=== PATIENT | male | born 1960 | race Caucasian/White ===

== ENCOUNTER 2017-09-17 14:04 | Outpatient (RCR) | payer MEDICAID, SELFPAY ==
--- NOTE | 2017-09-17 13:49 | PTDS_ITS ---
Date: September 17, 2017 Referring: Gonzales Arteaga D.O. Diagnosis: S/p bilateral TKA Subjective: History of Present Illness: Masoud reports he has been holding up well with his in clinic strengthening program. Wishes to continue on a Wellness basis. Still has some difficulty with kneeling, as well as some flaco patella discomfort when transitioning from end range flexion to extension. Objective: ROM: AROM 115 flexion left; 120 right. AAROM 120 flexion left; 125 right. Extension 0 bilaterally. Strength: 4+/5 quadriceps, hamstrings, hip flexion and hip abduction. No charge for today's session. Assessment: The patient has met all short and mcc goals established at time of I.E. I do feel he would benefit from continued strengthening via a Wellness Program. Plan: Will discharge Masoud at this time, and have him complete his MSP for another two weeks and then transition to a Wellness Program. Thank you for this referral!
== END 2017-10-16 23:59 | disposition home or self-care (01) ==
LOC: PT 14:04
PROVIDERS: PCP Emergency Medicine; Referring Provider Orthopaedic Surgery; Visit Provider Orthopaedic Surgery
DX: Z47.1 Aftercare following joint replacement surgery (principal); Z96.653 Presence of artificial knee joint, bilateral

== ENCOUNTER → 2017-10-02 16:13 | Outpatient (CLI) | payer MEDICAID, SELFPAY ==
[2017-10-02 18:01] LABS: C-Reactive Protein 0.63 mg/dL (0.0-0.3)
[2017-10-05 13:47] LABS: HSV Type 1 Ab, IgG Positive; HSV Type 2 Ab, IgG Negative
[2017-10-06 14:07] LABS: SS-A Antibody 1.7 Units (<20); SS-B (La) Ab, IgG 2.2 Units (<20)
== END ==
PROVIDERS: PCP Emergency Medicine; Visit Provider Otolaryngology Otolaryngology/Facial Plastic Surgery
DX: K13.0 Diseases of lips (principal); R68.2 Dry mouth, unspecified
CPT/HCPCS: 36415; 86140; 86235; 86695; 86696

== ENCOUNTER 2020-05-07 03:49 | Outpatient (CLI) | payer MEDICAID, SELFPAY ==
[2020-05-07 13:11] LABS: Abs Immature Grans 0.02 10^3/uL (0.0-0.06); Absolute Basophil Count 0.03 10^3/uL (0.0-0.2); Absolute Eosinophil Count 0.09 10^3/uL (0.0-0.7); Absolute Lymphocyte Count 1.31 10^3/uL (1.2-3.4); Absolute Monocyte Count 0.58 10^3/uL (0.1-0.8); Absolute Neutrophil Count 3.04 10^3/uL (1.2-6.7); Basophils % 0.6; Eosinophils % 1.8; HCT 43.3 % (40.0-50.0); HGB 14.8 g/dL (13.5-17.5); Immature Grans % 0.4; Lymphocytes % 25.8; MCH 29.7 pg (27.0-33.0); MCHC 34.2 % (32.0-36.0); MCV 86.8 fL (80-95); MPV 12.1 fL (8.0-11.0); Monocytes % 11.4; Nucleated RBC 0 %; Platelet Count 121 10^3/uL (130-400); RBC 4.99 10^6/uL (4.36-5.78); RDW 13.1 % (11.8-14.1); RDW-SD 41.3 fL; WBC 5.07 10^3/uL (4.4-10.8)
[2020-05-07 14:31] LABS: ALT 48 U/L (16-63); AST 25 U/L (15-37); Albumin 3.9 g/dL (3.4-5.0); Alkaline Phosphatase 130 U/L (46-116); Anion Gap 9.9 mmol/L (3-11); BUN 14 mg/dL (7-18); Bilirubin, Total 0.5 mg/dL (0.2-1.0); CO2 27.1 mmol/L (21.0-32.0); Calcium 9.3 mg/dL (8.5-10.1); Calculated LDL 120 mg/dL (<100); Chloride 106 mmol/L (98-107); Cholesterol 234 mg/dL (<200); Glucose 103 mg/dL (74-106); HDL Cholesterol 40 mg/dL (40-60); Potassium 4.1 mmol/L (3.5-5.1); Sodium 143 mmol/L (136-145); Triglyceride 371 mg/dL (<150)
[2020-05-07 14:48] LABS: Total Protein 7.4 g/dL (6.4-8.2)
== END 2020-05-07 03:50 | disposition home or self-care (01) ==
LOC: LBO 03:49
PROVIDERS: PCP Emergency Medicine; Visit Provider Family Medicine
DX: E78.5 Hyperlipidemia, unspecified (principal); K51.90 Ulcerative colitis, unspecified, without complications
CPT/HCPCS: 36415; 80053; 80061; 85025

== ENCOUNTER 2021-05-30 02:13 | Outpatient (CLI) | payer MEDICAID, SELFPAY ==
[2021-05-30 10:06] LABS: Calculated LDL 97 mg/dL (<100); Cholesterol 188 mg/dL (<200); HDL Cholesterol 40 mg/dL (40-60); Triglyceride 258 mg/dL (<150)
== END 2021-05-30 02:14 | disposition home or self-care (01) ==
LOC: LBO 02:13
PROVIDERS: PCP Nurse Practitioner Family; Visit Provider Nurse Practitioner Family
DX: E78.2 Mixed hyperlipidemia (principal)
CPT/HCPCS: 36415; 80061

== ENCOUNTER 2021-08-26 03:30 | Outpatient (CLI) | payer MEDICAID, SELFPAY ==
[2021-08-26 12:56] LABS: CREATININE 0.9 mg/dL (0.70-1.30)
== END 2021-08-26 03:31 | disposition home or self-care (01) ==
LOC: LOS 03:30
PROVIDERS: PCP Nurse Practitioner Family; Visit Provider Nurse Practitioner Family
DX: I10 Essential (primary) hypertension (principal)
CPT/HCPCS: 36415; 82565

== ENCOUNTER 2022-01-29 03:16 | Outpatient (CLI) | payer MEDICAID, SELFPAY ==
[2022-01-29 12:30] LABS: Potassium 3.8 mmol/L (3.5-5.1)
== END 2022-01-29 03:17 | disposition home or self-care (01) ==
LOC: LOS 03:17
PROVIDERS: PCP Nurse Practitioner Family; Visit Provider Nurse Practitioner Family
DX: I10 Essential (primary) hypertension (principal)
CPT/HCPCS: 36415; 84132

== ENCOUNTER → 2023-03-06 00:18 | Outpatient (CLI) | payer MEDICAID, SELFPAY ==
--- NOTE | 2023-03-06 07:42 | DI.MRI_ITS ---
Exam(s) MR UPPER JOINT LT WO EXAM: MR UPPER JOINT LT WO CLINICAL HISTORY: Lt shoulder pain,M25.511,? supraspinatus tear TECHNIQUE: Multiplanar multisequence MRI of the shoulder was performed. COMPARISON: CR RIGHT SHOULDER COMPLETE from 08/18/2012 FINDINGS: MARROW:There is no evidence of fracture, Hill-Sachs deformity, nor ominous osseous lesions. GLENOHUMERAL JOINT: There has been progression of degenerative change in the glenohumeral joint when compared to plain film images of August 2012. There are now chondral defects over the lower half of the osseous glenoid. Also cartilage thinning over the lower half of the humeral head. There are no deg enerative subarticular cysts. There is a tiny osteophyte on the inferior articular surface of the hu meral head. There is no glenohumeral joint effusion nor obvious loose intra-articular bodies. ROTATOR CUFF MECHANISM: AC JOINT/ACROMIUM: There are mild degenerative changes in the AC joint.. There is no evidence of os acromiale. Supraspinatus: There is mild tendinitis signal evident in the supraspinatus tendon in without evidenc e of partial nor full-thickness tear and there is no fluid in the overlying subacromial bursa. Howev er, there is also signal abnormality more proximally in the supraspinatus medial to the osseous gleno id. This is predominately on the superior surface of the muscle just proximal to the musculotendinou s junction. Infraspinatus: Intact. No evidence of tear nor muscle atrophy. Teres Minor: Intact. No evidence of tear nor muscle atrophy. Subscapularis/anterior cuff: Intact. No abnormal signal at the level of the multipennate insertional fibers. No significant tear nor atrophy. BICEPS TENDON: Exhibits normal position within the intertubercular groove. There is some thinning of the biceps tendon over a distance of 1.8 cm within the upper intertubercular groove. However, there is no full-thickness tear nor retraction. LABRUM: There is an somewhat attenuated superior labrum posterior to the biceps insertion. There is also tearing of the posterior labrum as well as the anterior superior labrum.. The inferior labrum a ppears intact. There is no obvious tear of the inferior glenohumeral ligament. QUADRILATERAL SPACE: No evidence of mass in the region of the axillary nerve and dorsal circumflex hu meral vessels. Visualized triceps muscle at this level appears unremarkable. IMPRESSION: 1. There is mild tendinitis of the supraspinatus but there is more impressive signal abnormality more proximally in the muscle just proximal to the musculotendinous junction, this medial to the glenoid fossa consistent with mild intramuscular tearing at this level. 2. There are moderate degenerative changes in the glenohumeral joint with multilevel articular cartil age surface loss and there is a small osteophyte on the inferior articular surface of the humeral hea d. There is also some diffuse labral tearing as described above. The inferior glenohumeral ligament is intact. 3. No evidence of glenohumeral joint effusion or loose intra-articular bodies. There are no degenera tive subarticular cysts. DATA REPOSITORY:
== END ==
PROVIDERS: PCP Nurse Practitioner Family; Visit Provider Nurse Practitioner Family
DX: M75.112 Incomplete rotator cuff tear or rupture of left shoulder, not specified as traumatic
CPT/HCPCS: 73221

== ENCOUNTER 2023-04-03 02:55 | Outpatient (CLI) | payer MEDICAID, SELFPAY ==
[2023-04-03 12:52] LABS: CREATININE 1.1 mg/dL (0.70-1.30); Estimated GFR 76.37 (mL/min/1.73m2)
[2023-04-03 15:57] LABS: Calculated LDL 86 mg/dL (<100); Cholesterol 170 mg/dL (<200); HDL Cholesterol 47 mg/dL (40-60); Triglyceride 185 mg/dL (<150)
== END 2023-04-03 02:56 | disposition home or self-care (01) ==
LOC: LOS 02:55
PROVIDERS: PCP Nurse Practitioner Family; Visit Provider Nurse Practitioner Family
DX: I10 Essential (primary) hypertension (principal); E78.5 Hyperlipidemia, unspecified
CPT/HCPCS: 36415; 80061; 82565; 84132

== ENCOUNTER → 2023-07-16 03:00 | Outpatient (CLI) | payer MEDICAID, SELFPAY ==
--- NOTE | 2023-07-16 07:45 | DI.MRI_ITS ---
Exam(s) MR UPPER JOINT LT WO EXAM: MR UPPER JOINT LT WO CLINICAL HISTORY: L SHOULDER PAIN, LT ROT CUFF TEAR, TENDINITIS, IMPINGEMENT SYNDROME, M75.10. TECHNIQUE: Multiplanar multisequence MRI was performed. COMPARISON: CR XR SHOULDER LEFT from 12/26/2022 MR MR UPPER JOINT LT WO from 03/06/2023 FINDINGS: BONES: There is no fracture or contusion pattern. JOINTS: Mild degenerative changes are seen at the acromioclavicular joint. There are degenerative ch anges seen at the glenohumeral joint with cartilage loss particularly seen in the inferior aspect of the glenoid. Spurring is seen in the humeral head. There is a small to moderate size joint effusion . There is a 4 mm loose body in the joint effusion anteriorly. There is fluid seen along the medial aspect of the proximal humeral metaphysis. There also appears to be some disruption of the joint ca psule inferiorly and posteriorly. TENDONS: Supraspinatus: There is no evidence of a supraspinatus tendon tear peer the supraspinatus muscle show s normal signal. The previously seen hyperintense signal has resolved. Infraspinatus: Unremarkable. Subscapularis: Unremarkable. Teres Minor: Unremarkable. Biceps and Tyler: Unremarkable. MUSCLES: Unremarkable. GLENOID LABRUM: There is irregularity of the superior labrum likely reflecting degeneration. There a lso degenerative changes seen in the posterior labrum. SOFT TISSUES: Unremarkable. LIGAMENTS: Unremarkable. OTHER: Subacromial and subdeltoid bursae are unremarkable. IMPRESSION: 1. There is fluid now seen medial to the proximal humeral metaphysis and there appears to be disrupti on of the inferior capsule suspicious for an inferior glenohumeral ligament tear. 2. Resolution of the abnormal signal seen in the supraspinatus muscle. No evidence of a rotator cuff tear. 3. Irregularity of the labrum which may reflect degeneration and/or tear. 4. Glenohumeral joint effusion and question of a loose body anteriorly. 5. Degenerative changes of the glenohumeral joint. DATA REPOSITORY:
== END ==
PROVIDERS: PCP Nurse Practitioner Family; Visit Provider Student in an Organized Health Care Education/Training Program
DX: M75.22 Bicipital tendinitis, left shoulder
CPT/HCPCS: 73221

== ENCOUNTER 2024-04-12 08:55 | Outpatient (CLI) | payer MEDICAID, SELFPAY ==
[2024-04-12 08:59] LABS: Anion Gap 7.3 mmol/L (3-11); BUN 13 mg/dL (7-18); CO2 29.7 mmol/L (21.0-32.0); Calcium 9.9 mg/dL (8.5-10.1); Chloride 108 mmol/L (98-107); Glucose 99 mg/dL (74-106); Sodium 145 mmol/L (136-145)
[2024-04-12 19:02] LABS: PSA, Screening 1.2 ng/mL (<=4.5)
== END 2024-04-12 08:56 | disposition home or self-care (01) ==
LOC: LBO 08:56
PROVIDERS: PCP Nurse Practitioner Family; Visit Provider Nurse Practitioner Family
DX: Z12.5 Encounter for screening for malignant neoplasm of prostate (principal); Z13.1 Encounter for screening for diabetes mellitus; Z23 Encounter for immunization; I10 Essential (primary) hypertension; E78.2 Mixed hyperlipidemia; K21.9 Gastro-esophageal reflux disease without esophagitis; S06.9X9A Unspecified intracranial injury with loss of consciousness of unspecified duration, initial encounter; Z96.612 Presence of left artificial shoulder joint
CPT/HCPCS: 36415; 80048; 84153

== ENCOUNTER 2024-10-25 17:00 | Emergency (ER) | payer MEDICAID, SELFPAY ==
[2024-10-25 17:06] VITALS: BP 147/95; PULSE 74; RESP 20; TEMP 36.8; O2SAT 94
--- NOTE | 2024-10-25 17:30 | DI.RAD_ITS ---
Exam(s) XR CHEST 2V PA LATERAL EXAM: XR CHEST 2V PA LATERAL CLINICAL HISTORY: hemoptysis TECHNIQUE: 2D digital imaging was performed. Two views. COMPARISON: No exams were available for comparison FINDINGS: HEART: Normal size. Aorta: Not dilated. PULMONARY VASCULATURE: Normal. MEDIASTINUM: Unremarkable. LUNGS: Clear. PLEURAL SPACE: No pleural effusion or pneumothorax. BONE:Left shoulder prosthesis. SOFT TISSUES: Unremarkable. IMPRESSION: No acute abnormality. The preliminary [facility] report was reviewed. DATA REPOSITORY: RADIATION DOSE DELIVERED:
[2024-10-25 18:10] LABS: Abs Immature Grans 0.02 10^3/uL (0.0-0.06); HCT 39.4 % (40.0-50.0); HGB 13.4 g/dL (13.5-17.5); Immature Grans % 0.5 %; MCH 30.5 pg (27.0-33.0); MCHC 34.0 % (32.0-36.0); MCV 90 fL (80-95); MPV 11.9 fL (8.0-11.0); Platelet Count 107 10^3/uL (130-400); RBC 4.40 10^6/uL (4.36-5.78); RDW 13.2 % (11.8-14.1); RDW-SD 43.2 fL; WBC 4.31 10^3/uL (4.4-10.8)
[2024-10-25 18:24] LABS: ALT 27 U/L (16-63); AST 17 U/L (15-37); Albumin 4.1 g/dL (3.4-5.0); Alkaline Phosphatase 108 U/L (46-116); Anion Gap 11.5 mmol/L (3-11); BUN 15 mg/dL (7-18); Bilirubin, Total 0.5 mg/dL (0.2-1.0); CO2 24.5 mmol/L (21.0-32.0); Calcium 9.6 mg/dL (8.5-10.1); Chloride 105 mmol/L (98-107); Estimated GFR 100.06 (mL/min/1.73m2); Glucose 118 mg/dL (74-106); Potassium 3.9 mmol/L (3.5-5.1); Sodium 141 mmol/L (136-145); Total Protein 7.8 g/dL (6.4-8.2)
[2024-10-25 18:54] LABS: D-Dimer 756 ng/mlFEU (<500)
--- NOTE | 2024-10-25 19:15 | DI.CT_ITS ---
Exam(s) CT CHEST PE CTA EXAM: CT CHEST PE CTA CLINICAL HISTORY: elevated dimer, wtih hemoptysis. TECHNIQUE: Imaging Protocol: Axial CT angiography was performed with multi- slice acquisition and multi-planar reconstructions as well as axial, coronal and sagittal MIP reconstructions. Computer aided detection (CAD) was utilized. CONTRAST MATERIAL: Intravenous: Omnipaque 350 Contrast volume:83 ml COMPARISON: CT CHEST ABD PELVIS WITH CONTRAST from 10/04/2014 CR,XR XR CHEST 2V PA LATERAL from 10/25/2024 FINDINGS: Exam is mildly limited by motion artifact. Pulmonary Arteries: No evidence of filling defect to suggest pulmonary emboli. Mediastinum and Chani: Small mediastinal and hilar lymph nodes.. Pulmonary parenchyma: Expiratory changes. No consolidation or dominant measurable mass. Pleura: No effusion or pneumothorax. Heart: The heart is not dilated. coronary artery calcifications are seen. Aorta: Thoracic aorta non-dilated. No dissection. Upper abdomen: No acute findings. Bones: Unremarkable for age. Tubes, Catheters, and Lines: None Soft tissues: Unremarkable. IMPRESSION: No evidence of pulmonary embolism. The lungs are not well evaluated due to expiratory changes. There are mildly enlarged hilar and mediastinal lymph nodes, nonspecific, which may be secondary to infectious versus inflammatory or neoplastic causes. The preliminary [facility] report was reviewed. RADIATION DOSE DELIVERED: 112.3mGy.cm Total DLP DATA REPOSITORY: All CT scans at this facility are submitted to the National Radiology Data Registry (NRDR) Dose Index Registry (DIR) with the [employer] (A[employer]). RADIATION OPTIMIZATION: All CT scans at this facility use at least one of these dose optimization techniques: automated exposure control; mA and/or kV adjustment per patient size (includes targeted exams where dose is matched to clinical indication); or iterative reconstruction.
--- NOTE | 2024-10-25 20:00 | DI.[facility]_ITS ---
PROCEDURE INFORMATION: Exam: XR Chest Exam date and time: 10/25/2024 7:15 PM Age: 64 years old Clinical indication: Other: Hemoptysis; Prior surgery; Surgery date: 6+ months; Surgery type: L shoulder surg x jan 2024 TECHNIQUE: Imaging protocol: Radiologic exam of the chest. Views: 2 views. COMPARISON: MR UPPER JOINT LT WO 07/16/2023 12:16 PM FINDINGS: Lungs: No pulmonary consolidation is seen. Pleural spaces: No pleural effusion or pneumothorax is demonstrated. Heart/Mediastinum: The heart appears normal in size. Bones/joints: A left shoulder arthroplasty prosthesis is partially visualized. Otherwise, the visualized bony structures appear grossly intact. IMPRESSION: No active disease is seen in the chest. Dictated and Authenticated by: Roni Wood MD. Orderin Maurizio Espinosa MD
[2024-10-25] MEDS: Omnipaque 350 MG/ML 100 ML BTL IJ (20:09)
[2024-10-25] MEDS: Normal Saline Flush 10 ML SYR IVP (20:10)
[2024-10-25] MEDS: Normal Saline - Diluent 50 ML VIAL IJ (20:10)
--- NOTE | 2024-10-25 20:35 | DI.[facility]_ITS ---
PROCEDURE INFORMATION: Exam: CTA Chest With Contrast Exam date and time: 10/25/2024 8:10 PM Age: 64 years old Clinical indication: Abnormal findings; Abnormal diagnostic tests; Elevated d-dimer; Elevated d dimer. Wtih hemoptysis TECHNIQUE: Imaging protocol: Computed tomographic angiography of the chest with contrast. Exam focused on the arteries. 3D rendering (Not supervised by radiologist): MIP and/or 3D reconstructed images were created by the technologist. Radiation optimization: All CT scans at this facility use at least one of these dose optimization techniques: automated exposure control; mA and/or kV adjustment per patient size (includes targeted exams where dose is matched to clinical indication); or iterative reconstruction. Contrast material: OMNIPAQUE 350; Contrast volume: 83 ml; Contrast route: INTRAVENOUS (IV); COMPARISON: CR XR CHEST 2V PA LATERAL 10/25/2024 7:15 PM FINDINGS: Pulmonary arteries: No pulmonary embolism is identified. The small and distal pulmonary arteries are partially obscured by artifact from breathing motion and not well evaluated for diagnosis or exclusion of small or distal pulmonary emboli. Aorta: No thoracic aortic aneurysm. Coronary artery calcification in the left anterior descending artery. Thyroid: Thyroid gland largely obscured by artifact and poorly evaluated but not grossly enlarged. Lungs: No pulmonary consolidation. Pleural spaces: No pleural effusion or pneumothorax. Heart: Normal-sized heart. Lymph nodes: Enlarged bilateral hilar lymph nodes with a 1.9 cm x 1.5 cm lymph node on the right on image 65 of series 10 and a 1.3 cm x 1.2 cm lymph node on the left on image 59 of series 10. Bones/joints: Prior left shoulder arthroplasty with associated streak artifact created by the metallic prosthesis. Lower ribs partially excluded from view and incompletely evaluated. Otherwise, no acute fracture seen among the bones of the chest. Soft tissues: No gross soft tissue mass or fluid collection seen in the chest wall. No gross soft tissue mass or fluid collection seen in the chest wall. IMPRESSION: 1. No pulmonary consolidation or pleural effusion. 2. Limited assessment for pulmonary emboli, as above. 3. Mildly enlarged bilateral hilar lymph nodes, nonspecific. Reactive, inflammatory, or neoplastic nodes could have this appearance. Clinical correlation and follow-up are recommended. Dictated and Authenticated by: Roni Wood MD. Orderin Maurizio Espinosa MD
[2024-10-25] MEDS: Doxycycline Hyclate 100 MG, 2 CAPS/BTL PO (21:34)
[2024-10-25] MEDS: predniSONE 20 MG TAB 40 MG PO (21:34)
[2024-10-25] MEDS: Loratidine 10 MG TAB PO (21:35)
[2024-10-25 21:39] VITALS: BP 148/97; PULSE 64; RESP 22; TEMP 36.4; O2SAT 96
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
== END 2024-10-25 21:41 | disposition home or self-care (01) ==
PROVIDERS: Emergency Provider Physician Assistant; PCP Nurse Practitioner Family
DX: R04.2 Hemoptysis (principal); E04.1 Nontoxic single thyroid nodule; S60.561A Insect bite (nonvenomous) of right hand, initial encounter; X58.XXXA Exposure to other specified factors, initial encounter
CPT/HCPCS: 99285; 99284; 36415; 71275; 80053; 71046; 85025; 85379; J3490; J7512

== ENCOUNTER 2025-01-11 07:13 | Observation (INO) | payer MEDICAID, SELFPAY ==
[2025-01-11] VITALS (43 sets, daily range): BP systolic 113–149; BP diastolic 76–115; PULSE 69–119; RESP 12–27; TEMP 36–38.3; O2SAT 90–100
--- NOTE | 2025-01-11 07:15 | DI.CT_ITS ---
Exam(s) CT ABDOMEN PELVIS W EXAM: CT ABDOMEN PELVIS W CLINICAL HISTORY: periumbilical pain, N/V/D TECHNIQUE: Imaging Protocol: Axial computed tomography images with coronal and sagittal reformatted images were created and reviewed. CONTRAST MATERIAL: Intravenous: Omnipaque 350 Contrast volume:75 mL Oral: No COMPARISON: CT CHEST ABD PELVIS WITH CONTRAST from 10/04/[address] CHEST PE CTA from 10/25/2024 FINDINGS: ABDOMEN: Lung Bases: No acute abnormality. Liver: The dome of the liver was not included. No measurable mass. Portal, Superior Mesenteric, and Splenic Veins: Unremarkable. Gallbladder and Biliary Tract: There is some hyperdense debris seen in the dependent portion of the gallbladder suspicious for cholelithiasis. There is no biliary ductal dilatation. There is no CT evidence to suggest acute cholecystitis. Pancreas: Normal density, no abnormal calcifications or inflammatory process. Spleen: Normal. Adrenals: No masses seen. Kidneys: Normal size, contour and axis. No radiodense stones or obstructive uropathy. No masses seen. Abdominal Aorta: Abdominal portion non-dilated. Mild atherosclerotic calcification is present. Bowel: There are diverticula seen in the colon. There is [id number] wall thickening throughout the entire colon with pericolonic inflammation particularly seen in the right upper quadrant. There is also mild wall thickening seen in the terminal ileum. There is no evidence of obstruction. There is no evidence of an appendicitis. There is no evidence of pneumatosis. Peritoneal Cavity: No ascites, collection or mesenteric inflammatory response. No free air. Lymph Nodes: Within normal limits. Bones: Within normal limits for the patient's age. Soft Tissues: There is a small fat containing left inguinal hernia. PELVIS: Bladder: Symmetric distention, no gross wall thickening. Reproductive Organs: Unremarkable as visualized. Lymph Nodes: Within normal limits. Bones: Within normal limits for the patient's age. IMPRESSION: 1. Diffuse mild to moderate bowel wall thickening involving the entire colon in the terminal ileum. Primary diagnostic concern is for inflammatory bowel process such as ulcerative colitis. Enterocolitis should also be considered. 2. Diverticulosis of the sigmoid colon. RADIATION DOSE DELIVERED: 511.2mGy.cm Total DLP DATA REPOSITORY: All CT scans at this facility are submitted to the National Radiology Data Registry (NRDR) Dose Index Registry (DIR) with the [employer] (ACR). RADIATION OPTIMIZATION: All CT scans at this facility use at least one of these dose optimization techniques: automated exposure control; mA and/or kV adjustment per patient size (includes targeted exams where dose is matched to clinical indication); or iterative reconstruction.
[2025-01-11] MEDS: Ondansetron 4 MG/2 ML VIAL IVP ×2 (07:38→12:51)
[2025-01-11] MEDS: ACETAMINOPHEN 1,000 MG/100 ML BAG 400 MG IVPB (07:38)
[2025-01-11] MEDS: Lactated Ringers 500 ML 1000 ML IV (07:39)
[2025-01-11 07:40] LABS: Abs Immature Grans 0.05 10^3/uL (0.0-0.06); HCT 47.8 % (40.0-50.0); HGB 16.7 g/dL (13.5-17.5); Immature Grans % 0.6 %; MCH 30.5 pg (27.0-33.0); MCHC 34.9 % (32.0-36.0); MCV 87 fL (80-95); MPV 12.5 fL (8.0-11.0); Platelet Count 107 10^3/uL (130-400); RBC 5.48 10^6/uL (4.36-5.78); RDW 13.2 % (11.8-14.1); RDW-SD 42.6 fL; WBC 7.87 10^3/uL (4.4-10.8)
[2025-01-11 07:56] LABS: RBC Morphology Normal
[2025-01-11 07:58] LABS: Lipase 27 U/L (<53); Magnesium 2.1 mg/dL (1.6-2.6)
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
[2025-01-11 08:00] LABS: ALT 30 U/L (10-49); AST 27 U/L (<34); Albumin 4.8 g/dL (3.2-5.0); Alkaline Phosphatase 91 U/L (46-116); Anion Gap 13.9 mmol/L (3-11); BUN 30 mg/dL (9-23); Bilirubin, Total 0.80 mg/dL (0.2-1.2); CO2 20.1 mmol/L (20.0-31.0); Calcium 9.5 mg/dL (8.3-10.6); Chloride 103 mmol/L (98-107); Glucose 127 mg/dL (74-106); Potassium 3.8 mmol/L (3.5-5.1); Sodium 137 mmol/L (136-145); Total Protein 8.5 g/dL (5.7-8.2)
--- NOTE | 2025-01-11 08:00 | RT.EKG_ITS ---
APPROVED REPORT Exam: Resting ECG Reason for Exam: Elevated trop, CP Patient Location: E HR:98 bpm ECG Measurements Heart Rate 98 AXIS KS 144 P 38 QRSd 180 QRS -39 QT 412 T 121 QTc 527 Conclusion Sinus rhythm, rate 98 LBBB and prolonged QTc at 527ms Sgarbosa negative, no priors available for comparison
[2025-01-11] MEDS: Omnipaque 350 MG/ML 100 ML BTL IJ (08:08)
[2025-01-11] MEDS: Normal Saline - Diluent 50 ML VIAL IJ (08:09)
[2025-01-11 08:12] LABS: Troponin I 98 ng/L (<54)
[2025-01-11 09:13] LABS: Troponin I 90 ng/L (<54)
[2025-01-11 09:56] LABS: ESR 49 mm/hr (0-20)
[2025-01-11 10:05] LABS: EPI 027-NAP1-B1 PRESUMPTIVE NEGATIVE
[2025-01-11 10:08] LABS: C-Reactive Protein 14.37 mg/dL (<=0.50)
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
[2025-01-11] MEDS: methylPREDNISolone SUCC 40 MG VIAL 20 MG IVP ×2 (10:16→18:13)
[2025-01-11 10:49] LABS: Glucose Negative (Negative)
[2025-01-11 10:56] LABS: C & S Indicated? No; RBC 0-2 HPF (0-2); WBC Negative HPF (0-5)
--- NOTE | 2025-01-11 11:07 | W.PC.ACHO ---
Registration Status: REG ER Primary Language: Preferred Language: Setswana ED Information & Data Chief Complaint Nausea/Vomit/Diar 01/11/25 07:58 Triage Note N/V/D, abdominal pain, 01/11/25 07:18 chillc, fatigued, weakness since Thursday Medical / Surgical History (Last Reviewed 12/05/24 @ 12:33 by Leo Luong MD) Fall with injury Impingement syndrome of left shoulder Tendinitis of long head of biceps brachii of left shoulder Left rotator cuff tear Medial epicondylitis, left elbow Lateral epicondylitis, left elbow (Last Reviewed 12/05/24 @ 12:33 by Leo Luong MD) History of left shoulder replacement Status post reverse total arthroplasty of left shoulder (02/03/24) History of arthroscopy of knee Status post total bilateral knee replacement (04/29/17) Colonoscopy - MAC Arthroplasty of knee Most Recent Vital Signs Temperature 36.9 C 01/11/25 09:28 Temperature Source Oral 01/11/25 09:28 Pulse 93 H 01/11/25 10:46 Pulse 97 H 01/11/25 10:46 Respiratory Rate 14 01/11/25 10:46 Blood Pressure 126/87 01/11/25 10:46 Blood Pressure Mean 99 01/11/25 10:46 Blood Pressure Position Sitting 01/11/25 07:57 Pulse Oximetry 93 01/11/25 10:46 Oxygen Delivery Method Room Air 01/11/25 07:57 Oxygen Flow Rate 0 01/11/25 07:57 Pain Level 6 01/11/25 07:57 Allergies erythromycin base Allergy (Severe, Verified 01/11/25 07:25) HIVES vegetable oil Allergy (Intermediate, Verified 01/11/25 07:25) Skin Rash Breakout in face palm oil Adverse Reaction (Intermediate, Verified 01/11/25 07:25) Skin Rash Rash around eyes, lips, and face tomato Allergy (Uncoded 01/11/25 07:25) hives Precautions Isolation Standard precaution 01/11/25 07:24 Active Medications Generic Name Dose Route Start Last Admin Trade Name Freq PRN Reason Stop Dose Admin Iohexol 100 ml 01/11/25 08:15 01/11/25 08:08 Omnipaque 350 Mg/Ml 100 Ml Btl IJ 02/10/25 23:59 75 ml DIRECTED SILVANA Administration Sodium Chloride 0 ml 01/11/25 08:30 01/11/25 08:30 Normal Saline Flush 10 Ml Syr IVP Not Given BID SILVANA Sodium Chloride 50 ml 01/11/25 08:15 01/11/25 08:09 Normal Saline - Diluent 50 Ml Vial IJ 50 ml DIRECTED SILVANA Administration IV IV Catheter Type [Right Saline Lock Forearm] IV Catheter Gauge [Right 20 Forearm] Diagnostics 01/11/25 01/11/25 01/11/25 Range/Units 10:41 10:10 09:09 WBC (4.4-10.8) 10^3/uL RBC (4.36-5.78) 10^6/uL Hgb (13.5-17.5) g/dL Hct (40.0-50.0) % MCV (80-95) fL MCH (27.0-33.0) pg MCHC (32.0-36.0) % RDW (11.8-14.1) % Plt Count (130-400) 10^3/uL MPV (8.0-11.0) fL Immature Gran % % Neutrophils % % Lymphocytes % % Monocytes % % Eosinophils % % Basophils % % Nucleated RBC % (0.0-0.3) % Absolute Neutrophils (1.2-6.7) 10^3/uL Absolute Lymphocytes (1.2-3.4) 10^3/uL Absolute Monocytes (0.1-0.8) 10^3/uL Absolute Eosinophils (0.0-0.7) 10^3/uL Absolute Basophils (0.0-0.2) 10^3/uL RBC Morphology ESR (0-20) mm/hr VBG Lactate (<or=2.0) mmol/L Sodium (136-145) mmol/L Potassium (3.5-5.1) mmol/L Chloride (98-107) mmol/L Carbon Dioxide (20.0-31.0) mmol/L Anion Gap (3-11) mmol/L BUN (9-23) mg/dL Creatinine (0.73-1.18) mg/dL Est GFR (CKD-EPI 2020) (mL/min/1.73m2) Glucose (74-106) mg/dL Calcium (8.3-10.6) mg/dL Magnesium (1.6-2.6) mg/dL Total Bilirubin (0.2-1.2) mg/dL AST (<34) U/L ALT (10-49) U/L Alkaline Phosphatase (46-116) U/L Troponin I 73 H* (<54) ng/L C-Reactive Protein (<=0.50) mg/dL Total Protein (5.7-8.2) g/dL Albumin (3.2-5.0) g/dL Lipase (<53) U/L Urine Color Yellow (Yellow) Urine Clarity Clear (Clear) Urine pH 5.5 (5-8) Ur Specific [place] <= 1.005 (1.005-1.025) Urine Protein >=300 H (Neg-Trace) mg/dL Urine Ketones 15 H (Negative) mg/dL Urine Blood Small H (Negative) Urine Nitrite Negative (Negative) Urine Bilirubin Small H (Negative) Urine Urobilinogen 0.2 (Up to 0.2) mg/dL Ur Leukocyte Esterase Negative (Negative) Urine RBC 0-2 (0-2) HPF Urine WBC Negative (0-5) HPF Ur Epithelial Cells Few (Negative) HPF Urine Crystals Negative (Negative) HPF Urine Bacteria Negative (Negative) HPF Urine Casts 3-5 Hyaline (Negative) LPF Urine Mucus Trace (Negative) Ur Culture Indicated? No Urine Glucose Negative (Negative) mg/dL Stl C.difficile Tox PCR Negative (Negative) 01/11/25 01/11/25 Range/Units 08:33 07:32 WBC 7.87 (4.4-10.8) 10^3/uL RBC 5.48 (4.36-5.78) 10^6/uL Hgb 16.7 (13.5-17.5) g/dL Hct 47.8 (40.0-50.0) % MCV 87 (80-95) fL MCH 30.5 (27.0-33.0) pg MCHC 34.9 (32.0-36.0) % RDW 13.2 (11.8-14.1) % Plt Count 107 L (130-400) 10^3/uL MPV 12.5 H (8.0-11.0) fL Immature Gran % 0.6 % Neutrophils % 58.1 % Lymphocytes % 8.0 % Monocytes % 30.5 % Eosinophils % 2.2 % Basophils % 0.6 % Nucleated RBC % 0.0 (0.0-0.3) % Absolute Neutrophils 4.57 (1.2-6.7) 10^3/uL Absolute Lymphocytes 0.63 L (1.2-3.4) 10^3/uL Absolute Monocytes 2.40 H (0.1-0.8) 10^3/uL Absolute Eosinophils 0.17 (0.0-0.7) 10^3/uL Absolute Basophils 0.05 (0.0-0.2) 10^3/uL RBC Morphology Normal ESR 49 H (0-20) mm/hr VBG Lactate 1.9 (<or=2.0) mmol/L Sodium 137 (136-145) mmol/L Potassium 3.8 (3.5-5.1) mmol/L Chloride 103 (98-107) mmol/L Carbon Dioxide 20.1 (20.0-31.0) mmol/L Anion Gap 13.9 H (3-11) mmol/L BUN 30 H (9-23) mg/dL Creatinine 1.02 (0.73-1.18) mg/dL Est GFR (CKD-EPI 2020) 73.77 (mL/min/1.73m2) Glucose 127 H (74-106) mg/dL Calcium 9.5 (8.3-10.6) mg/dL Magnesium 2.1 (1.6-2.6) mg/dL Total Bilirubin 0.80 (0.2-1.2) mg/dL AST 27 (<34) U/L ALT 30 (10-49) U/L Alkaline Phosphatase 91 (46-116) U/L Troponin I 90 H* 98 H* (<54) ng/L C-Reactive Protein 14.37 H (<=0.50) mg/dL Total Protein 8.5 H (5.7-8.2) g/dL Albumin 4.8 (3.2-5.0) g/dL Lipase 27 (<53) U/L Urine Color (Yellow) Urine Clarity (Clear) Urine pH (5-8) Ur Specific Vida (1.005-1.025) Urine Protein (Neg-Trace) mg/dL Urine Ketones (Negative) mg/dL Urine Blood (Negative) Urine Nitrite (Negative) Urine Bilirubin (Negative) Urine Urobilinogen (Up to 0.2) mg/dL Ur Leukocyte Esterase (Negative) Urine RBC (0-2) HPF Urine WBC (0-5) HPF Ur Epithelial Cells (Negative) HPF Urine Crystals (Negative) HPF Urine Bacteria (Negative) HPF Urine Casts (Negative) LPF Urine Mucus (Negative) Ur Culture Indicated? Urine Glucose (Negative) mg/dL Stl C.difficile Tox PCR (Negative) Intake and Output - 24 Hour Total 01/11/25 07:13 thru 01/11/25 10:44 Intake Total 610 Output Total 600 Balance 10 Weight 93.894 kg Intake: IV 610 Output: Urine 100 Stool 500 Other: Stool Size Moderate Stool Characteristics Liquid Green # Voids 1 # Bowel Movements 1 Falls Risk Assessment History of Falls No History 01/11/25 07:58 Contributing Factors Unstable 01/11/25 07:58 Ambulatory Aids Uses ambulatory device + 01/11/25 07:58 Tubes/Lines With any additional score 01/11/25 07:58 Gait Evaluation No gait disturbance 01/11/25 07:58 Cognition No cognitive impairment 01/11/25 07:58 Fall Total Score 53 01/11/25 07:58 Level of Risk High Risk 01/11/25 07:58 Problems (Last Reviewed 12/05/24 @ 12:33 by Leo Luong MD) Diarrhea (Acute) Nausea & vomiting (Acute) Discharge planning issues (Acute) On deep vein thrombosis (DVT) prophylaxis (Acute) Dehydration (Acute) GERD (gastroesophageal reflux disease) (Chronic) Essential hypertension (Acute) Chronic daily headache (Acute) Developmental reading disorder (Acute) TBI (traumatic brain injury) (Acute) Ulcerative colitis (Acute) Attestation Statement: By documenting the first initial, last name, and credentials of the reporting nurse below, both parties acknowledge that all relevant information regarding the patient handoff has been communicated, and that all questions have been addressed to ensure continuity and safety of care. Additional Patient Information/Comments: Report Received From: [facility] at 1100 am
[2025-01-11 11:12] LABS: Troponin I 73 ng/L (<54)
[2025-01-11] MEDS: Ibuprofen 400 MG TAB PO (12:46)
[2025-01-11] MEDS: Normal Saline Flush 10 ML SYR IVP ×2 (12:49→19:44)
[2025-01-11] MEDS: Enoxaparin 40 MG/0.4 ML SYR SC (12:50)
[2025-01-11] MEDS: Pantoprazole 40 MG VIAL IVP (12:50)
[2025-01-11] MEDS: Lactated Ringers 1,000 ML 100 ML IV ×2 (13:32→23:48)
[2025-01-11] MEDS: HYDROmorphone 2 MG/ML SYR 0.5 MG IVP (13:37)
[2025-01-11] MEDS: Clotrimazole/Betamet Diprop Cream 15 GM TUBE TP (19:45)
[2025-01-12] MEDS: methylPREDNISolone SUCC 40 MG VIAL 20 MG IVP ×3 (02:23→17:14)
[2025-01-12] MEDS: Normal Saline Flush 10 ML SYR IVP ×3 (02:24→20:51)
[2025-01-12 02:27] VITALS: TEMP 36.3
[2025-01-12 06:47] LABS: Abs Immature Grans 0.03 10^3/uL (0.0-0.06); HCT 44.4 % (40.0-50.0); HGB 15.2 g/dL (13.5-17.5); Immature Grans % 1.1 %; MCH 30.5 pg (27.0-33.0); MCHC 34.2 % (32.0-36.0); MCV 89 fL (80-95); MPV 12.5 fL (8.0-11.0); Platelet Count 101 10^3/uL (130-400); RBC 4.98 10^6/uL (4.36-5.78); RDW 13.2 % (11.8-14.1); RDW-SD 43.3 fL; WBC 2.74 10^3/uL (4.4-10.8)
[2025-01-12 07:10] LABS: Magnesium 2.2 mg/dL (1.6-2.6)
[2025-01-12 07:12] LABS: Anion Gap 9 mmol/L (3-11); BUN 32 mg/dL (9-23); CO2 22.0 mmol/L (20.0-31.0); Calcium 9.4 mg/dL (8.3-10.6); Chloride 109 mmol/L (98-107); Cholesterol 125 mg/dL (<200); Glucose 147 mg/dL (74-106); HDL Cholesterol 29 mg/dL (>40); Potassium 3.9 mmol/L (3.5-5.1); Sodium 140 mmol/L (136-145)
[2025-01-12] MEDS: Pantoprazole 40 MG VIAL IVP (08:10)
[2025-01-12] MEDS: Simvastatin 20 MG TAB PO (08:10)
[2025-01-12] MEDS: Lisinopril 5 MG TAB PO (08:10)
[2025-01-12] MEDS: Lactated Ringers 1,000 ML 100 ML IV ×2 (08:16→18:34)
--- NOTE | 2025-01-12 10:14 | PGE_ITS ---
Date of Service Date of service: 01/12/25 Time of Service: 11:29 Assessment and Plan Assessment and plan (1) Ulcerative colitis: Start date: 01/12/25 Start time: 12:30 Status: Acute Assessment and plan: Previously diagnosed with colonoscopy - not on medicines and this episode reported as the first flare- no blood in stools On admission Fever X1 w/o leukocytosis - will continue to monitor -Blood cultures results still pending - no antibiotics at this time DDX: enteric / infectious colitis -C. Difficlie PCR negative -Fecal pathogen PCR results still pending Continue methylprednisolone - oral titer at d/c IVF LR at 100 cc/hr - no Hx of CHF reported, no previous echo on file still reporting dizziness and weakness Tolerating water - Enteral intake trial of regular no FODMAP diet, no lactose- patient has multiple allergies to oils Ongoing PRN antiemetic and PRN acetaminophen for pain- Opioids might increase risk of ileus, NSAIDs not recommended - Consider one time dose of opioids for untractable pain and one times dose of NSAIDs for fever not resolving with PRN acetaminophen consider surgical consult if no improvement - But will need a outpatient follow- up with surgery versus colorectal or GI Patient still having intermittent abdominal pain , less left sided abdominal tenderness - reminded to call for pain medicine (2) Diarrhea: Status: Acute Assessment and plan: as above : antimotility agents not recommended - was taking imodium at home 3 episodes before noon today - oneof the d/c criteria < 6 /day BMP in AM (3) Nausea & vomiting: Status: Acute Assessment and plan: As per point one (4) Dehydration: Status: Acute Assessment and plan: As above Improving - will stop fluid and encourage oral intake if orthosatic VS are negative and tolerating diet (5) GERD (gastroesophageal reflux disease): Status: Chronic Assessment and plan: Ogoing IV PPI - resume home regimen when clinically improved (6) Essential hypertension: Status: Acute Assessment and plan: Continue home meds VS as per order (7) TBI (traumatic brain injury): Status: Acute Assessment and plan: Hx of TBI- able to communicate needs with guidance (8) On deep vein thrombosis (DVT) prophylaxis: Status: Acute Assessment and plan: On Lovenox CBC in AM (9) Elevated troponin: Status: Acute Assessment and plan: On arrival to the ED on 01/11 but on down trend prior to admission to the floor - no ACS symptoms/ EKG SR w known LBBB,QTc 527ms - no coronary occlusion (10) Discharge planning issues: Status: Acute Assessment and plan: home when medically stable, clinically improved and able to tolerate oral intake PT evaluation Discussed with Dr. Hernandez Subjective Subjective Patient reports: still having pain, tolerating liquids well, voiding w/o difficulty (hematuria X1 last night - resolved), bowel movement, diarrhea and other (reports thirst , increased abd pain with moving and laughter, dizziness during ambulation to BR and while completing ADL's ); denies blood in stool, nausea, vomiting, shortness of breath or fever Exam Narrative Exam Narrative: 64 yo male patient appearing older than stated age, pleasant no acute distress, non-icteric sclera, neurologically at baseline, Alert and oriented X3, speaks full sentences , unlabored breathing and clear lungs, S1 S2 regular , no murmur, abdomen is non-distended, soft with left lower sided tenderness, moves all 4 ext., no edema Objective Last Vital Signs Temp 36.3 C L 01/12/25 02:27 Pulse 99 H 01/11/25 19:20 Resp 18 01/11/25 19:20 BP 120/87 01/11/25 19:20 Pulse Ox 100 01/11/25 19:20 Laboratory Results - last 24 hr 01/11/25 01/11/25 01/12/25 10:10 10:41 06:21 WBC 2.74 L RBC 4.98 Hgb 15.2 Hct 44.4 MCV 89 MCH 30.5 MCHC 34.2 RDW 13.2 Plt Count 101 L MPV 12.5 H Immature Gran % 1.1 Neutrophils % 70.5 Lymphocytes % 15.7 Monocytes % 12.0 Eosinophils % 0.0 Basophils % 0.7 Nucleated RBC % 0.0 Absolute Neutrophils 1.93 Absolute Lymphocytes 0.43 L Absolute Monocytes 0.33 Absolute Eosinophils 0.00 Absolute Basophils 0.02 Sodium 140 Potassium 3.9 Chloride 109 H Carbon Dioxide 22.0 Anion Gap 9 BUN 32 H Creatinine 0.79 Est GFR (CKD-EPI 2020) 99.06 Glucose 147 H Calcium 9.4 Magnesium 2.2 Troponin I 73 H* Triglycerides 174 H Total Cholesterol 125 LDL Cholesterol, Calc 61.2 HDL Cholesterol 29 L Urine Color Yellow Urine Clarity Clear Urine pH 5.5 Ur Specific [place] <= 1.005 Urine Protein >=300 H Urine Ketones 15 H Urine Blood Small H Urine Nitrite Negative Urine Bilirubin Small H Urine Urobilinogen 0.2 Ur Leukocyte Esterase Negative Urine RBC 0-2 Urine WBC Negative Ur Epithelial Cells Few Urine Crystals Negative Urine Bacteria Negative Urine Casts 3-5 Hyaline Urine Mucus Trace Ur Culture Indicated? No Urine Glucose Negative VTE Prohylaxis Risk Level: Moderate/High Risk Contraindications: None Prophylaxis: Patient anticoagulated and Pharmacologic Time Spent with Patient Time Spent with Patient: >50 minutes Time was spent: preparing to see the patient(eg.review tests), obtaining and/or reviewing separately otained hiistory, ordering medications,tests, procedures, referring, communicating with other health career discovery teacher, indepentently interpreting results, counseling the patient, care coordination and other
[2025-01-12] MEDS: Enoxaparin 40 MG/0.4 ML SYR SC (10:51)
[2025-01-12] MEDS: Clotrimazole/Betamet Diprop Cream 15 GM TUBE TP ×2 (10:53→20:55)
[2025-01-12 10:59] LABS: Lab Add On Test DONE
[2025-01-12 11:02] LABS: Shiga Toxin PCR Negative (Negative); Shigella/Enteroinvasive Ecoli Negative (Negative)
[2025-01-12 11:28] LABS: Procalcitonin 0.29 ng/mL
--- NOTE | 2025-01-12 11:28 | CHAPLAIN ---
Masoud was resting in bed when I visited. He told me that his family will be in later today to visit. Last year he had shoulder surgery and [place] , he said. Masoud was very pleasant and easily engaged in a conversation. When I explained my role, he told me that both his father and his brother are pastors.
[2025-01-12] MEDS: ACETAMINOPHEN 1,000 MG/100 ML BAG 400 MG IVPB ×2 (12:04→18:33)
[2025-01-12 13:49] VITALS: BP 103/73; BP 105/77; BP 98/65; PULSE 78; PULSE 89; PULSE 90
[2025-01-12 19:23] VITALS: BP 134/87; PULSE 82; RESP 16; TEMP 36; O2SAT 92
[2025-01-13] MEDS: methylPREDNISolone SUCC 40 MG VIAL 20 MG IVP (01:52)
[2025-01-13 06:54] LABS: Abs Immature Grans 0.07 10^3/uL (0.0-0.06); HCT 36.6 % (40.0-50.0); HGB 12.9 g/dL (13.5-17.5); Immature Grans % 1.7 %; MCH 31.0 pg (27.0-33.0); MCHC 35.2 % (32.0-36.0); MCV 88 fL (80-95); MPV 12.8 fL (8.0-11.0); RBC 4.16 10^6/uL (4.36-5.78); RDW 13.2 % (11.8-14.1); RDW-SD 42.5 fL; WBC 4.06 10^3/uL (4.4-10.8)
[2025-01-13 07:13] LABS: C-Reactive Protein 7.21 mg/dL (<=0.50)
[2025-01-13 07:16] LABS: Anion Gap 8.6 mmol/L (3-11); BUN 27 mg/dL (9-23); CO2 26.4 mmol/L (20.0-31.0); Calcium 9.3 mg/dL (8.3-10.6); Chloride 108 mmol/L (98-107); Glucose 134 mg/dL (74-106); Potassium 3.9 mmol/L (3.5-5.1); Sodium 143 mmol/L (136-145)
[2025-01-13 07:20] LABS: Platelet Count 99 10^3/uL (130-400); RBC Morphology Normal
[2025-01-13 07:53] VITALS: BP 127/82; PULSE 68; RESP 16; TEMP 36.4; O2SAT 97
[2025-01-13] MEDS: Lisinopril 5 MG TAB PO (08:11)
[2025-01-13] MEDS: Simvastatin 20 MG TAB PO (08:11)
[2025-01-13] MEDS: Enoxaparin 40 MG/0.4 ML SYR SC (08:12)
[2025-01-13] MEDS: predniSONE 20 MG TAB 60 MG PO (08:12)
[2025-01-13] MEDS: Pantoprazole 40 MG VIAL IVP (08:12)
[2025-01-13] MEDS: Normal Saline Flush 10 ML SYR IVP ×3 (08:15→19:57)
[2025-01-13] MEDS: Acetaminophen 500 MG TAB 1000 MG PO ×2 (08:20→14:31)
[2025-01-13] MEDS: Clotrimazole/Betamet Diprop Cream 15 GM TUBE TP ×2 (08:21→19:56)
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
--- NOTE | 2025-01-13 09:20 | PGE_ITS ---
Date of Service Date of service: 01/13/25 Time of Service: 09:20 Assessment and Plan Assessment and plan (1) Ulcerative colitis: Start date: 01/13/25 Start time: 10: Status: Acute Assessment and plan: Previously diagnosed with colonoscopy - not on medicines and this episode reported as the first flare- no blood in stools On admission Fever X1 w/o leukocytosis - afebrile -Blood cultures results form 01/11/25 reported as growing GPC this AM at 0516- microbiology tech Georgina mentioned plating done around 04AM and could not differentiate clusters or chain at the current time DDX: enteric / infectious colitis -C. Difficlie PCR negative -Fecal pathogen PCR results still pending Continue methylprednisolone - oral titer at d/c IVF LR at 100 cc/hr - no Hx of CHF reported, no previous echo on file still reporting dizziness and weakness Tolerating and enteral intake trial of regular no FODMAP diet, no lactose- patient has multiple allergies to oils Ongoing PRN antiemetic and PRN acetaminophen for pain- Opioids might increase risk of ileus, NSAIDs not recommended - Consider one time dose of opioids for untractable pain and one times dose of NSAIDs for fever not resolving with PRN acetaminophen consider surgical consult if no improvement - Referral to [facility] colorectal sent - previous colonoscopy in 2022 - report was only showing diverticular disease and int. hemorroids Decreased stool output to < 6 , no hematochezia (2) Gram-positive cocci bacteremia: Start date: 01/13/25 Start time: : Status: Acute Assessment and plan: -Blood cultures results from 01/11/25 reported as growing GPC in anaerobic bottle this AM at 0516- microbiology tech Georgina mentioned plating done around 04AM and could not differentiate clusters or chain at the current time - Repeat blood culture STAT - Might be a contaminant Will intiate vancomycin and monitor- (3) Diarrhea: Status: Acute Assessment and plan: as above : antimotility agents not recommended - was taking imodium at home d/c criteria < 6 /day BMP in AM (4) Nausea & vomiting: Status: Acute Assessment and plan: As per point one - improving (5) Dehydration: Status: Acute Assessment and plan: As above Resolved - will stop fluid and encourage oral intake (6) GERD (gastroesophageal reflux disease): Status: Chronic Assessment and plan: on home regimen (7) Essential hypertension: Status: Acute Assessment and plan: Continue home meds VS as per order (8) TBI (traumatic brain injury): Status: Acute Assessment and plan: Hx of TBI- able to communicate needs with guidance - call brother Martin Joseph at at (9) On deep vein thrombosis (DVT) prophylaxis: Status: Acute Assessment and plan: On Lovenox CBC in AM (10) Elevated troponin: Status: Acute Assessment and plan: On arrival to the ED on 01/11 but on down trend prior to admission to the floor - no ACS symptoms/ EKG SR w known LBBB,QTc 527ms - no coronary occlusion (11) Discharge planning issues: Status: Acute Assessment and plan: home when medically stable, clinically improved and able to tolerate oral intake PT evaluation Discussed with Dr. Hernandez Subjective Subjective Patient reports: feels better, tolerating liquids well, tolerating a regular diet, voiding w/o difficulty, flatus, diarrhea and other (Bloating and abd pain - improving ); denies nausea, vomiting, shortness of breath or fever Exam Narrative Exam Narrative: 64 yo male patient appearing older than stated age, pleasant no acute distress, neurologically at baseline, alert and oriented X3, unlabored breathing and clear lungs, S1 S2 regular , no murmur, abdomen is slightly bloated , soft with left lower sided tenderness resolved, moves all 4 ext., no edema Objective Last Vital Signs Temp 36.4 C L 01/13/25 07:53 Pulse 68 01/13/25 07:53 Resp 16 01/13/25 07:53 BP 127/82 01/13/25 07:53 Pulse Ox 97 01/13/25 07:53 Laboratory Results - last 24 hr 01/12/25 01/13/25 06:21 06:20 WBC 4.06 L RBC 4.16 L Hgb 12.9 L D Hct 36.6 L MCV 88 MCH 31.0 MCHC 35.2 RDW 13.2 Plt Count 99 L MPV 12.8 H Immature Gran % 1.7 Neutrophils % 67.3 Lymphocytes % 9.1 Monocytes % 21.7 Eosinophils % 0.0 Basophils % 0.2 Nucleated RBC % 0.0 Absolute Neutrophils 2.73 Absolute Lymphocytes 0.37 L Absolute Monocytes 0.88 H Absolute Eosinophils 0.00 Absolute Basophils 0.01 RBC Morphology Normal Sodium 143 Potassium 3.9 Chloride 108 H Carbon Dioxide 26.4 Anion Gap 8.6 BUN 27 H Creatinine 0.70 L Est GFR (CKD-EPI 2020) 113.90 Glucose 134 H Calcium 9.3 C-Reactive Protein 7.21 H Procalcitonin 0.29 Add-On Test Request DONE
[2025-01-13] MEDS: VANCOMYCIN/WATER (PEG) 2 GM/400 ML BAG IVPB (11:09)
--- NOTE | 2025-01-13 13:52 | PT.INNT ---
PT Notes Visit Reasons: colitis, nausea, vomiting, diarrhea, abd pain Pt refused therapy intervention, pt is having an intense stomach ache, pt was not allowed to eat anything solid since last Thursday and today was his first day to be able to eat solid food, pt reports the food feels like it did not go down the way it is suppose to and it feels like it is trap on his upper GIT. Nurse Martine present during pt refusal and is aware of pt symptoms.
--- NOTE | 2025-01-13 14:33 | IN_ITS ---
PT Notes Visit Reasons: colitis, nausea, vomiting, diarrhea, abd pain Physical Therapy Inpatient Initial Evaluation Date: 01/13/2025 Referring Doctor: Erika Zamarripa NP PT Orders: PT CONSULT: Parvinal for safety consult for D/C Precautions: Fall. Standard. Activity as tolerated. Patient Profile/Admitting Diagnosis: 65 year old male presented to the ED with severe abdominal pain, nausea, vomiting and diarrhea. After pelvic CT scan pt was suspected to have inflammatory process of the bowels, specifically ulcerative colitis vs enterocolitis, with diverticulosis of sigmoid. PMHX: Diarrhea (Acute) Nausea & vomiting (Acute) Discharge planning issues (Acute) On deep vein thrombosis (DVT) prophylaxis (Acute) Dehydration (Acute) Swallowing difficulty (Acute) TMJ (dislocation of temporomandibular joint) (Acute) GERD (gastroesophageal reflux disease) (Chronic) Essential hypertension (Acute) Chronic daily headache (Acute) Developmental reading disorder (Acute) Hyperlipidemia (Acute) LBBB (left bundle branch block) (Acute 03/04/17) Low back pain, non-specific (Acute) Sleep disturbance, unspecified (Acute) TBI (traumatic brain injury) (Acute) MVAUlcerative colitis (Acute) Medical History Fall with injury Impingement syndrome of left shoulder Tendinitis of long head of biceps brachii of left shoulder Left rotator cuff tear Medial epicondylitis, left elbow Lateral epicondylitis, left elbow Surgical History History of left shoulder replacement Status post reverse total arthroplasty of left shoulder (02/03/24) History of arthroscopy of knee Status post total bilateral knee replacement (04/29/17) Colonoscopy - MAC rthroplasty of knee left knee 2007 Social History/Home Situation: Pt lives in a single-family home with brother, and parents live in the upstairs portion of the home. Pt has 2 SHANON with no railing. Family provides medication management and financial assistant . Independent ambulation Equipment Owned/DME: FWW and wheelchair Subjective: Pt reported feeling well and tired. 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 Pt reported having severe difficulty reading. Post ambulation pt reported he tried to sit in the recliner but it caused his abdominal to hurt. Pt was educated on the importance of sitting up if he?s going to eat in bed. Post ambulation PT asked how the pt felt. Pt reported feeling okay after the walk, he just didn?t feel like he was at his baseline. Objective: General Observation: Pt laying in bed just finished breakfast when PT arrived. Mental Status: Alert and oriented as to person, place, and purpose. Able to pay attention, focus, and respond appropriately. Pt needs extra time to respond/process. Pt will also have short responses to some questions. Pain: 10 in abdominal Vital Signs: monitored by nursing ROM: Right Upper Extremity:?? Shoulder Flexion WFL. Shoulder abduction WFL. Elbow flexion WFL. Wrist flexion WFL. Functional opening and closing of hand WFL. Left Upper Extremity:? Shoulder Flexion WFL. Shoulder abduction WFL. Elbow flexion WFL. Wrist flexion WFL. Functional opening and closing of hand WFL. Right Lower Extremity: Hip flexion WFL. Hip abduction WFL. Knee flexion WFL. Ankle dorsiflexion WFL. Ankle plantarflexion WFL. Left Lower Extremity: Hip flexion WFL. Hip abduction WFL. Knee flexion WFL. Ankle dorsiflexion WFL. Ankle plantarflexion WFL. Strength: Right Upper Extremity: Grossly 4-/5 Left Upper Extremity: Grossly 4-/5 Right Lower Extremity: Grossly 4-/5 Left Lower Extremity: Grossly 4-/5 Bed Mobility/Transfers: Rolling Independent Supine to sit Independent Sit to supine Independent Sit to stand Independent Stand to sit Independent Ambulation Gait: Instructed patient with level surface ambulation of 75 feet requiring CGA with no AD. Meme normal. Step height normal. Step length normal. Pt had almost no plantar flexion to propel himself forward. Pt had increase adduction of left LE during initial contact. This caused pt to have increased medal and lateral sway without need for external support Stairs: Pt ambulated with CGA 2 6inch steps and 3 4inch steps with rails on both sides. Pt had a reciprocal step pattern with ascending and descending stairs. Balance: Static Sitting: normal Dynamic Sitting: good Static Standing: good Dynamic Standing: fair Special Tests: Mobility Limitations Standardized Measure [employer] AM-PAC 6 clicks Basic Mobility Inpatient Short Form: Raw Score: 23? CMS Score: 11.2% deficit? Informed Consent/Education:? Patient was instructed in purpose of PT consult and plan of care. Agreeable to proceed with established PT POC to achieve personal goals. Therapeutic Activity 89863: Ambulation: Pt ambulated 150 feet with CGA with no assistive device. DPTS provided mild verbal cueing for foot placement to widened base of support to increase pt stability during ambulation. Stairs: Pt ambulated with CGA 2 6inch steps and 3 4inch steps with rails on both sides. PT provided mild verbal cueing for foot placement to prevent heel from catching the step as pt descended ? Assessment: Pt is independent with bed mobility. Pt needed CGA ambulating in the hallways. Pt had almost no push off from plantar flexors during ambulation and pt would slightly circumduction his LLE which resulted in his LLE landing adducted position. This caused some medial and lateral sway. After moderate cueing pt was able to correct this pattern, but wasn?t able to sustain for long. Pt was able to ambulate stairs. However, he needed to hold on to both railings. Next session pt will perform the stairs with out the railings to simulate home environment, and ambulate with cueing to monitor if pt is able to sustain correct ambulation pattern. Patient presents with clinical signs and symptoms consistent with current/admitting diagnoses that have resulted to mobility limitations, gait instability, generalized weakness, and overall ADL decline as demonstrated by the following impairment level findings: 1.? Decreased strength to both UE/LE major muscles 2.? Impaired standing balance 3.? Impaired activity tolerance 4.? Pain Abdomen 5.? motor recruitment 6.? decreased coordination Impairments are contributing to the following functional limitations: 1.? Difficulty with ambulation independently 2.? Increased completion time for mobility ADL performance 3.? Increased risk for falls 4.? Difficulty with managing steps alone safely Patient is assessed as a Low complexity based on the following: History: 65-year-old male with past medical history as indicated above Examination: Demonstrable impairment in strength, balance, and mobility level with underlying impairments and functional limitations as exhibited above as well as deficit score of 11.2% utilizing the [facility] Mobility Inpatient Short Form Presentation: evolving Decision Making: Low complexity Goals: Goals X1 week 1. Bed-Chair independent with no AD/least restrictive device 2. Chair-Bed independent with no AD/least restrictive device 3. Independent gait on level surface with use of for at least 300 feet without report of pain nor dyspnea 4. Independent stair negotiation while holding onto no rails for at least 3 steps without report of pain nor dyspnea 5. Independent with home exercise program 6. Good static and dynamic standing balance/tolerance Plan of Care/Treatment Plan: 1-2x/day, 7 days/week x 1 week. Plan of care has been reviewed with the INSULATION WORKER APPRENTICE providing the service under Physical Therapy direction. Initiate Physical Therapy intervention for pain management as needed, strengthening, bed mobility, transfers, gait, stairs, balance training, and use of assistive device. DISCHARGE RECOMMENDATIONS: Home with outpatient PT vs Home with HHPT TREATMENT CODE/TIME: 8:37-9:03am Thank you for the opportunity to participate in the care of this patient. Written By SARA Borja Supervised By Genevieve Maurer, PT [facility] [place], [place]
[2025-01-13 19:16] VITALS: BP 118/85; PULSE 74; RESP 16; TEMP 36.7; O2SAT 95
[2025-01-13] MEDS: VANCOMYCIN/WATER (PEG) 1.25 GM/250 ML BAG IVPB (23:45)
[2025-01-14] MEDS: Omeprazole 20 MG CAPCR 40 MG PO (06:36)
[2025-01-14 08:05] LABS: Abs Immature Grans 0.12 10^3/uL (0.0-0.06); HCT 36.0 % (40.0-50.0); HGB 12.1 g/dL (13.5-17.5); Immature Grans % 1.9 %; MCH 30.0 pg (27.0-33.0); MCHC 33.6 % (32.0-36.0); MCV 89 fL (80-95); MPV 12.6 fL (8.0-11.0); Platelet Count 107 10^3/uL (130-400); RBC 4.03 10^6/uL (4.36-5.78); RDW 13.3 % (11.8-14.1); RDW-SD 43.8 fL; WBC 6.45 10^3/uL (4.4-10.8)
[2025-01-14 08:18] VITALS: BP 123/73; PULSE 74; RESP 16; TEMP 36.4; O2SAT 98
[2025-01-14 08:21] LABS: Magnesium 2.0 mg/dL (1.6-2.6)
[2025-01-14 08:23] LABS: Anion Gap 8.8 mmol/L (3-11); BUN 18 mg/dL (9-23); CO2 27.2 mmol/L (20.0-31.0); Calcium 9.2 mg/dL (8.3-10.6); Chloride 106 mmol/L (98-107); Glucose 99 mg/dL (74-106); Potassium 3.3 mmol/L (3.5-5.1); Sodium 142 mmol/L (136-145)
[2025-01-14 08:28] LABS: RBC Morphology Normal
[2025-01-14] MEDS: Lisinopril 5 MG TAB PO (09:26)
[2025-01-14] MEDS: predniSONE 20 MG TAB 60 MG PO (09:26)
[2025-01-14] MEDS: Normal Saline Flush 10 ML SYR IVP ×3 (09:26→21:50)
[2025-01-14] MEDS: Simvastatin 20 MG TAB PO (09:26)
[2025-01-14] MEDS: Enoxaparin 40 MG/0.4 ML SYR SC (09:26)
--- NOTE | 2025-01-14 09:58 | PTTR_ITS ---
Date of service: 01/14/25 Time of Service: 09:16 PT Notes Visit Reasons: colitis, nausea, vomiting, diarrhea, abd pain SUBJECTIVE: Reports he is unable to tolerate sitting secondary to it creating abdominal pain. Plans to recline in the car to return home when he is discharged and that his brother will transport him home. OBJECTIVE:? currently on contact precautions secondary to pending test results. Cdiff negative large liquid BM just prior to arrival Treatment:supine to/from sit supervision, contacting feet on commode both times, despite cuing amb 200 feet with wide base of support with bilateral LE ER with supervision only, though mildly unsteady up and down 2-3 steps with 1 rail for gentle support. Can hold onto a post or doorway at home to enter. Standing: step forwards with forward hands, laterally with palm up, backwards with cuing for hand movement posteriorly, but unable to perform x 5 each side with close supervision. mild LOB 5 times, but no assist needed. Discussed requesting foods that he normally eats at home to eat here as able Assessment: Patient is a 65 yo male adm 01/11/25 for Ulcerative colitis flare with fever X 1 w/o leukocytosis, fecal pathogen PCR results still pending, and with Gram-positive cocci bacteremia. Continues with liquid stools and limited P.O. with balance slightly below his baseline. Plan: Continue daily PT until discharge. Billing Charges: Treatment Units Time Duration Manual Therapy (55594) Hands-on techniques to modulate pain increase joint range of motion reduce or eliminate soft tissue swelling, inflammation, or restriction facilitate relaxation and improve contractile and non-contractile tissue extensibility Therapeutic Procedures (29681) Instruction in therapeutic exercises to develop strength and endurance, range of motion and flexibility. HEP instruction and review: Provided skilled instruction in proper exercise performance: Provided skilled manual cues to facilitate proper muscle recruitment and/or movement?pattern: Neurological Re-Education (88223) to improve balance, coordination, kinesthetic and proprioceptive sensations. Ultrasound (97700) to promote healing Gait Training (22864) Therapeutic Activity (47086) instruction in dynamic activitie s with one on one patient contact by the provider to improve functional performance as follows: 3 41 Self Care Training (32296) Time Coded Treatment Minutes: 41 Total Treatment Time: 41
[2025-01-14] MEDS: Clotrimazole/Betamet Diprop Cream 15 GM TUBE TP ×2 (10:43→21:49)
[2025-01-14] MEDS: POTASSIUM CHLORIDE 10 MEQ/100 ML BAG 100 MEQ IV_INF ×4 (11:37→15:23)
--- NOTE | 2025-01-14 12:20 | W.PM.PROGNOT ---
Date of Service Date of service: 01/14/25 Time of Service: 12:20 Assessment and Plan Assessment and plan (1) Ulcerative colitis: Status: Acute Assessment and plan: Previously diagnosed with colonoscopy - not on medicines and this episode reported as the first flare- no blood in stools On admission Fever X1 w/o leukocytosis - afebrile -Blood cultures results form 01/11/25 reported as growing GPC this AM at 0516- microbiology tech Georgina mentioned plating done around 04AM and could not differentiate clusters or chain at the current time DDX: enteric / infectious colitis -C. Difficlie PCR negative -Fecal pathogen PCR results still pending Continue methylprednisolone - oral titer at d/c IVF LR at 100 cc/hr - no Hx of CHF reported, no previous echo on file still reporting dizziness and weakness Tolerating and enteral intake trial of regular no FODMAP diet, no lactose- patient has multiple allergies to oils Ongoing PRN antiemetic and PRN acetaminophen for pain- Opioids might increase risk of ileus, NSAIDs not recommended - Consider one time dose of opioids for untractable pain and one times dose of NSAIDs for fever not resolving with PRN acetaminophen consider surgical consult if no improvement - Referral to [facility] [place] colorectal sent - previous colonoscopy in 2022 - report was only showing diverticular disease and int. hemorroids Decreased stool output to < 6 , no hematochezia (2) Gram-positive cocci bacteremia: Status: Acute Assessment and plan: -Blood cultures results from 01/11/25 reported as growing GPC in anaerobic bottle this AM at 0516- microbiology tech Georgina mentioned plating done around 04AM and could not differentiate clusters or chain at the current time - Repeat blood culture pending - liekly a contaminant on vancomycin and monitor- (3) Diarrhea: Status: Acute Assessment and plan: as above : antimotility agents not recommended - was taking imodium at home d/c criteria < 6 /day BMP in AM (4) GERD (gastroesophageal reflux disease): Status: Chronic Assessment and plan: on home regimen (5) Essential hypertension: Status: Acute Assessment and plan: Continue home meds VS as per order (6) TBI (traumatic brain injury): Status: Acute Assessment and plan: Hx of TBI- able to communicate needs with guidance - call brother Martin Joseph at at (7) On deep vein thrombosis (DVT) prophylaxis: Status: Acute Assessment and plan: On Lovenox CBC in AM (8) Elevated troponin: Status: Acute Assessment and plan: On arrival to the ED on 01/11 but on down trend prior to admission to the floor - no ACS symptoms/ EKG SR w known LBBB,QTc 527ms -no acute ischemic EKG changes (9) Discharge planning issues: Status: Acute Assessment and plan: home when medically stable, clinically improved and able to tolerate oral intake PT evaluation Discussed with Dr. Hernandez Subjective Subjective Patient reports: still having pain, voiding w/o difficulty and afebrile; denies shortness of breath Exam Narrative Exam Narrative: Thin male of stated age no acute distress head is atraumatic eyes nonicteric noninjected oral mucosas moist neck is supple full range of motion cardiovascular regular rate and rhythm respirations even and unlabored abdomen is slightly distended soft reports tenderness no guarding no masses moves all extremities no peripheral edema neurologic he is awake alert oriented no focal deficits psychiatric appropriate mood and affect Objective Last Vital Signs Temp 36.4 C L 01/14/25 08:18 Pulse 74 01/14/25 08:18 Resp 16 01/14/25 08:18 BP 123/73 01/14/25 08:18 Pulse Ox 98 01/14/25 08:18 Laboratory Results - last 24 hr 01/14/25 01/14/25 07:40 07:40 WBC 6.45 RBC 4.03 L Hgb 12.1 L Hct 36.0 L MCV 89 MCH 30.0 MCHC 33.6 RDW 13.3 Plt Count 107 L MPV 12.6 H Immature Gran % 1.9 Neutrophils % 52.8 Lymphocytes % 14.6 Monocytes % 30.4 Eosinophils % 0.0 Basophils % 0.3 Nucleated RBC % 0.0 Absolute Neutrophils 3.41 Absolute Lymphocytes 0.94 L Absolute Monocytes 1.96 H Absolute Eosinophils 0.00 Absolute Basophils 0.02 RBC Morphology Normal Sodium 142 Potassium 3.3 L Chloride 106 Carbon Dioxide 27.2 Anion Gap 8.8 BUN 18 Creatinine 0.74 Est GFR (CKD-EPI 2020) 106.82 Glucose 99 Calcium 9.2 Magnesium 2.0 Cancelled VTE Prohylaxis Risk Level: Moderate/High Risk Contraindications: None Prophylaxis: Patient anticoagulated Time Spent with Patient Time Spent with Patient: 35-49 minutes Time was spent: preparing to see the patient(eg.review tests), obtaining and/or reviewing separately otained hiistory, ordering medications,tests, procedures, indepentently interpreting results and counseling the patient
[2025-01-14] MEDS: VANCOMYCIN/WATER (PEG) 1.25 GM/250 ML BAG IVPB (13:05)
[2025-01-14 20:36] VITALS: BP 112/78; PULSE 89; RESP 16; TEMP 37; O2SAT 93
[2025-01-15] MEDS: VANCOMYCIN/WATER (PEG) 1.25 GM/250 ML BAG IVPB (00:18)
[2025-01-15 06:32] VITALS: BP 102/57; PULSE 72; RESP 16; TEMP 36.8; O2SAT 94
[2025-01-15] MEDS: Simvastatin 20 MG TAB PO (07:49)
[2025-01-15] MEDS: Omeprazole 20 MG CAPCR 40 MG PO (07:49)
[2025-01-15] MEDS: Lisinopril 5 MG TAB PO (07:49)
[2025-01-15] MEDS: Enoxaparin 40 MG/0.4 ML SYR SC (07:50)
[2025-01-15 07:51] VITALS: BP 117/74
[2025-01-15] MEDS: Clotrimazole/Betamet Diprop Cream 15 GM TUBE TP ×2 (07:51→20:46)
[2025-01-15] MEDS: Normal Saline Flush 10 ML SYR IVP ×3 (07:56→20:46)
--- NOTE | 2025-01-15 09:14 | PTTR_ITS ---
Date of service: 01/15/25 Time of Service: 08:57 PT Notes Visit Reasons: colitis, nausea, vomiting, diarrhea, abd pain PT Inpatient Discharge Note SUBJECTIVE: Reports he is unable to tolerate sitting secondary to it creating diarrhea. Attempted to sit briefly on the bed this morning but it trigger liquid stool. Able to eat some Cheerios and a banana today. OBJECTIVE:? currently on contact precautions secondary to pending test results. Cdiff negative large liquid BM just prior to arrival Treatment:supine to/from sit independent. I in room. Amb 500 feet without loss of balance. Bilateral LE Er. Reports pain with heel first contact secondary to wearing socks only on concrete floor. Feels like his balance is back to normal. Discussed HHPT for a home safety check upon discharge. ? outpatient PT for balance when he is feeling better. Assessment: Patient is a 65 yo male adm 01/11/25 for Ulcerative colitis flare with fever X 1 w/o leukocytosis, fecal pathogen PCR results still pending, and with Gram-positive cocci bacteremia. Continues with liquid stools but P.O. improved. Is back at his functional mobility baseline. No additional skilled inpatient PT needs at this time. Plan: Discharge from skilled inpatient PT. Recommend HHPT for safety avail upon discharge. ? outpatient PT for balance when he is feeling better. Billing Charges: Treatment Units Time Duration Manual Therapy (04443) Hands-on techniques to modulate pain increase joint range of motion reduce or eliminate soft tissue swelling, inflammation, or restriction facilitate relaxation and improve contractile and non-contractile tissue extensibility Therapeutic Procedures (73658) Instruction in therapeutic exercises to develop strength and endurance, range of motion and flexibility. HEP instruction and review: Provided skilled instruction in proper exercise performance: Provided skilled manual cues to facilitate proper muscle recruitment and/or movement?pattern: Neurological Re-Education (58087) to improve balance, coordination, kinesthetic and proprioceptive sensations. Ultrasound (62765) to promote healing Gait Training (88503) Therapeutic Activity (32045) instruction in dynamic activitie s with one on one patient contact by the provider to improve functional performance as follows: 1 17 Self Care Training (79689) Time Coded Treatment Minutes: 17 Total Treatment Time: 17
[2025-01-15 11:59] LABS: Campylobacter PCR Positive (Negative)
--- NOTE | 2025-01-15 12:03 | PHA.ACLINA_ITS ---
Renal Dosing Renal Dosing: BUN 18 mg/dL (9-23) 01/14/25 07:40 Creatinine 0.74 mg/dL (0.73-1.18) 01/14/25 07:40 Anticoagulation Anticoagulation: Hgb 12.1 g/dL (13.5-17.5) L 01/14/25 07:40 Hct 36.0 % (40.0-50.0) L 01/14/25 07:40 Plt Count 107 10^3/uL (130-400) L 01/14/25 07:40 Creatinine 0.74 mg/dL (0.73-1.18) 01/14/25 07:40 Relevant Labs Relevant Labs: ESR 49 mm/hr (0-20) H 01/11/25 07:32 Sodium 142 mmol/L (136-145) 01/14/25 07:40 Potassium 3.3 mmol/L (3.5-5.1) L 01/14/25 07:40 Chloride 106 mmol/L (98-107) 01/14/25 07:40 Magnesium 2.0 mg/dL (1.6-2.6) 01/14/25 07:40 Magnesium Cancelled 01/14/25 07:40 C-Reactive Protein 7.21 mg/dL (<=0.50) H 01/13/25 06:20 DM Control DM Control: Glucose 99 mg/dL (74-106) 01/14/25 07:40 Cardiac Review Cardiac Review: Troponin I 73 ng/L (<54) H* 01/11/25 10:10 Pharmacy Antibiotic Review Pharmacy Antibiotic Activity: D/C antibiotic (repeat blood cultures on 01/13- final no growth (previous + culture on 01/11 most likely contanimant) recommended to d/c vanco IV)
[2025-01-15 13:15] LABS: Abs Immature Grans 0.16 10^3/uL (0.0-0.06); HCT 38.1 % (40.0-50.0); HGB 12.7 g/dL (13.5-17.5); Immature Grans % 1.9 %; MCH 29.5 pg (27.0-33.0); MCHC 33.3 % (32.0-36.0); MCV 89 fL (80-95); MPV 12.2 fL (8.0-11.0); Platelet Count 125 10^3/uL (130-400); RBC 4.30 10^6/uL (4.36-5.78); RDW 13.4 % (11.8-14.1); RDW-SD 43.7 fL; WBC 8.58 10^3/uL (4.4-10.8)
[2025-01-15 13:31] LABS: Anion Gap 8.7 mmol/L (3-11); BUN 17 mg/dL (9-23); CO2 24.3 mmol/L (20.0-31.0); Calcium 8.9 mg/dL (8.3-10.6); Chloride 107 mmol/L (98-107); Glucose 99 mg/dL (74-106); Potassium 3.5 mmol/L (3.5-5.1); Sodium 140 mmol/L (136-145)
[2025-01-15 14:03] LABS: RBC Morphology Normal
[2025-01-15] MEDS: ERTAPENEM 1 GM in Normal Saline 50 ML IVPB (14:32)
--- NOTE | 2025-01-15 15:00 | PGE_ITS ---
Date of Service Date of service: 01/15/25 Time of Service: 14:59 Assessment and Plan Assessment and plan (1) Campylobacter gastroenteritis: Status: Acute Assessment and plan: stool culture positive for campylobacter based on allergy profile and prolonged Qtc will initiate ertapenem continue symptom management diet advancing (2) Gram-negative bacteremia: Status: Acute Assessment and plan: initially thought to be gram positive, now growing gram negative, suspect c amylobacter initiated on ertapenem today repeat blood cultures in am. ID and sensitivities pending (3) Hypokalemia: Status: Acute Assessment and plan: from GI losses, repleted yesterday, now 3.5, will give 20 meq IVPB today and recheck in am (4) GERD (gastroesophageal reflux disease): Status: Chronic Assessment and plan: on home regimen (5) Essential hypertension: Status: Acute Assessment and plan: Continue home meds VS as per order (6) TBI (traumatic brain injury): Status: Acute Assessment and plan: Hx of TBI- able to communicate needs with guidance - call brother Martin Joseph at at (7) On deep vein thrombosis (DVT) prophylaxis: Status: Acute Assessment and plan: On Lovenox CBC in AM (8) Elevated troponin: Status: Acute Assessment and plan: On arrival to the ED on 01/11 but on down trend prior to admission to the floor - no ACS symptoms/ EKG SR w known LBBB,QTc 527ms -no acute ischemic EKG changes (9) Discharge planning issues: Status: Acute Assessment and plan: home when medically stable, clinically improved and able to tolerate oral intake PT evaluation Discussed with Dr. Hernandez Subjective Subjective Patient reports: no new complaints, tolerating liquids well, voiding w/o difficulty, diarrhea and afebrile; denies shortness of breath Exam Narrative Exam Narrative: Thin male of stated age no acute distress head is atraumatic eyes nonicteric noninjected oral mucosas moist neck is supple full range of motion cardiovascular regular rate and rhythm respirations even and unlabored abdomen is slightly distended soft reports tenderness no guarding no masses moves all extremities no peripheral edema neurologic he is awake alert oriented no focal deficits psychiatric appropriate mood and affect Objective Last Vital Signs Temp 36.8 C 01/15/25 06:32 Pulse 72 01/15/25 06:32 Resp 16 11/30/25 06:32 BP 117/74 01/15/25 07:51 Pulse Ox 94 01/15/25 06:32 Laboratory Results - last 24 hr 01/11/25 01/15/25 01/15/25 12:26 11:00 13:00 WBC 8.58 RBC 4.30 L Hgb 12.7 L Hct 38.1 L MCV 89 MCH 29.5 MCHC 33.3 RDW 13.4 Plt Count 125 L MPV 12.2 H Immature Gran % 1.9 Neutrophils % 63.7 Lymphocytes % 15.9 Monocytes % 18.1 Eosinophils % 0.1 Basophils % 0.3 Nucleated RBC % 0.0 Absolute Neutrophils 5.47 Absolute Lymphocytes 1.36 Absolute Monocytes 1.55 H Absolute Eosinophils 0.01 Absolute Basophils 0.03 RBC Morphology Normal Sodium 140 Potassium 3.5 Chloride 107 Carbon Dioxide 24.3 Anion Gap 8.7 BUN 17 Creatinine 0.81 Est GFR (CKD-EPI 2020) 96.24 Glucose 99 Calcium 8.9 Stool Campylobacter PCR Positive A Stool Salmonella PCR Negative Stool Shigella PCR Negative Vancomycin Trough Cancelled Shiga Toxin (PCR) Negative VTE Prohylaxis Risk Level: Moderate/High Risk Contraindications: None Prophylaxis: Patient anticoagulated Time Spent with Patient Time Spent with Patient: 35-49 minutes Time was spent: preparing to see the patient(eg.review tests), obtaining and/or reviewing separately otained hiistory, ordering medications,tests, procedures and indepentently interpreting results
[2025-01-15] MEDS: POTASSIUM CHLORIDE 10 MEQ/100 ML BAG 100 MEQ IV_INF ×2 (15:18→16:36)
[2025-01-15] MEDS: Acetaminophen 500 MG TAB 1000 MG PO (16:39)
[2025-01-15 19:48] VITALS: BP 98/69; PULSE 74; RESP 18; TEMP 36.6
[2025-01-16 07:16] LABS: Abs Immature Grans 0.21 10^3/uL (0.0-0.06); HCT 37.9 % (40.0-50.0); HGB 12.7 g/dL (13.5-17.5); Immature Grans % 2.3 %; MCH 29.8 pg (27.0-33.0); MCHC 33.5 % (32.0-36.0); MCV 89 fL (80-95); MPV 12.8 fL (8.0-11.0); Platelet Count 115 10^3/uL (130-400); RBC 4.26 10^6/uL (4.36-5.78); RDW 13.3 % (11.8-14.1); RDW-SD 43.6 fL; WBC 9.00 10^3/uL (4.4-10.8)
[2025-01-16 07:33] LABS: Anion Gap 8.3 mmol/L (3-11); BUN 14 mg/dL (9-23); CO2 23.7 mmol/L (20.0-31.0); Calcium 8.6 mg/dL (8.3-10.6); Chloride 108 mmol/L (98-107); Glucose 109 mg/dL (74-106); Potassium 3.6 mmol/L (3.5-5.1); Sodium 140 mmol/L (136-145)
[2025-01-16 07:55] VITALS: BP 105/76; PULSE 80; RESP 16; TEMP 36.7; O2SAT 93
[2025-01-16] MEDS: Omeprazole 20 MG CAPCR 40 MG PO (08:27)
[2025-01-16] MEDS: Lisinopril 5 MG TAB PO (08:27)
[2025-01-16] MEDS: Enoxaparin 40 MG/0.4 ML SYR SC (08:28)
[2025-01-16] MEDS: Simvastatin 20 MG TAB PO (08:28)
[2025-01-16] MEDS: Normal Saline Flush 10 ML SYR IVP ×3 (08:28→14:36)
[2025-01-16] MEDS: Clotrimazole/Betamet Diprop Cream 15 GM TUBE TP (08:29)
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
[2025-01-16] MEDS: ERTAPENEM 1 GM in Normal Saline 50 ML IVPB (14:35)
--- NOTE | 2025-01-16 16:58 | PDOC.CMDIS ---
Date of service: 01/16/25 Time of Service: 16:58 LACE Index Scoring Tool Questions: Length of Stay (in days): 4 - 6 Was the patient admitted via the E.D.?: Yes E.D. Visits: 1 Answers: Total Score: 8 Risk of Readmission: Low Risk Care Management Discharge Plan Reason for Hospitalization: colitis, nausea, vomiting, diarrhea Discharge Plan: Walter returned home today with a referral for outpatient PT; HH PT was offered, but he declined, stating that HH has been helpful in the past, but he feels confident that he will do well without HH at this time. He reported that he lives near all of his family, who are supportive. His brother drove him home via private vehicle. He will follow up with his PCP and discharge plan of care. CM provided a blank [place] advanced directive, which he will discuss with his family and will likely bring to his PCP appointment. He was happy to be going home. Patient/Family Education Needs: Review discharge instructions and limitations, discussion of self care needs including ask me three.
== END 2025-01-16 17:36 | disposition home or self-care (01) ==
LOC: ER 10:37 → MS 11:15
PROVIDERS: Nurse Practitioner Acute Care; Admitting Provider Family Medicine; Emergency Provider Emergency Medicine; PCP Nurse Practitioner Family; Responsible Provider Nurse Practitioner Family; Visit Provider Family Medicine
DX: A04.5 Campylobacter enteritis (principal); R78.81 Bacteremia; K51.90 Ulcerative colitis, unspecified, without complications; R11.2 Nausea with vomiting, unspecified; E86.0 Dehydration; K21.9 Gastro-esophageal reflux disease without esophagitis; I10 Essential (primary) hypertension; R74.8 Abnormal levels of other serum enzymes; E87.6 Hypokalemia; R50.9 Fever, unspecified; K57.30 Diverticulosis of large intestine without perforation or abscess without bleeding; R13.10 Dysphagia, unspecified; I44.7 Left bundle-branch block, unspecified; R51.9 Headache, unspecified; M54.50 Low back pain, unspecified; Z79.899 Other long term (current) drug therapy; Z96.653 Presence of artificial knee joint, bilateral; Z96.612 Presence of left artificial shoulder joint; Z87.820 Personal history of traumatic brain injury
CPT/HCPCS: 00123; 36415; 80048; 80053; 80061; 83690; 84145; 85652; 87040; 87505; 93005; 96365; 96375; 96376; 97161; 97530; 99285; J1650; 74177; 80202; 81003; 81015; 83605; 83735; 84484; 85025; 86140; 93010; 99223; 99233; 99239; G0378; J0131; J1171; J1335; J2405; J2470; J2919; J3373; J3480; J3490; J7512